=== PATIENT | female | born 1980 | race Caucasian/White ===

== ENCOUNTER 2016-12-31 09:15 | Emergency (ER) | payer OTHER ==
[2016-12-31 09:24] VITALS: BP 129/79
--- NOTE | 2016-12-31 09:54 | UC ---
FLU HPI - History of Current Complaint Chief Complaint: UCGeneralIllness Stated Complaint: FEVER,BODY ACHES Time Seen by Provider: 12/31/16 09:34 Hx Obtained From: Patient Hx Last Menstrual Period: murena ?: No Onset/Duration: Sudden Onset, Lasting Days - 2 Severity Currently: Moderate Severity Initially: Mild Pain Intensity: 3 Pain Scale Used: 0-10 Numeric Associated Signs & Symptoms: Positive: Fever, Myalgia, Cough - Allergy/Home Medications Allergies/Adverse Reactions: Allergies Allergy/AdvReac Type Severity Reaction Status Date / Time No Known Allergies Allergy Verified 12/31/16 09:25 Home Medications: Home Medications NK [No Home Medications Reported] 12/31/16 [History Confirmed 12/31/16] PMH/Surg Hx/FS Hx/Imm Hx Previously Healthy: Yes - Surgical History Surgical History: None - Family History Family History: no reported cardiovascular issues in family lineage - Social History Occupation: Employed Full-time Lives: With Family Alcohol Use: None Substance Use Type: None Smoking Status (MU): Never Smoked Tobacco - Immunization History Most Recent Influenza Vaccination: fall 2015 Review of Systems Constitutional: Fever, Chills, Fatigue Skin: Negative Eyes: Negative ENT: Negative Respiratory: Cough Cardiovascular: Negative Gastrointestinal: Negative Genitourinary: Negative Motor: Negative Neurovascular: Negative Musculoskeletal: Myalgia Neurological: Negative Psychological: Negative All Other Systems Reviewed And Are Negative: Yes Physical Exam Triage Information Reviewed: Yes Appearance: Well-Appearing, No Pain Distress, Well-Nourished Vital Signs: Initial Vital Signs Temp 97.4 F 12/31/16 09:21 Pulse 91 12/31/16 09:21 Resp 16 12/31/16 09:21 BP 129/79 12/31/16 09:21 Pulse Ox 98 12/31/16 09:21 Vital Signs Reviewed: Yes Eye Exam: Normal Eyes: Positive: Conjunctiva Clear ENT Exam: Normal ENT: Positive: Normal ENT inspection, Hearing grossly normal, Pharynx normal, TMs normal. Negative: Nasal congestion, Nasal drainage, Tonsillar swelling, Tonsillar exudate, Trismus, Muffled/hoarse voice Neck exam: Normal Neck: Positive: Supple, Nontender, No Lymphadenopathy Respiratory Exam: Normal Respiratory: Positive: Chest non-tender, Lungs clear, Normal breath sounds, No respiratory distress, No accessory muscle use Cardiovascular Exam: Normal Cardiovascular: Positive: RRR, No Murmur, Pulses Normal, Brisk Capillary Refill Musculoskeletal Exam: Normal Musculoskeletal: Positive: Strength Intact, ROM Intact, No Edema Neurological Exam: Normal Neurological: Positive: Alert Psychological Exam: Normal Skin Exam: Normal Diagnostics - Laboratory Diagnostic Studies Completed/Ordered: RST(-) Flu Course/Dx - Course Course Of Treatment: increase fluids, tylenol, ibuprofen follow with pcp re- check prn - Differential Dx/Diagnosis Differential Diagnosis/HQI/PQRI: Bronchitis, Influenza, Pneumonia, RSV, Upper Respiratory Infection Provider Diagnoses: URI Discharge - Discharge Plan Condition: Stable Disposition: HOME Patient Education Materials: Upper Respiratory Infection (ED), Viral Syndrome ( ED) Referrals: [facility] [place] [facility] [Outside] - If Needed
== END 2016-12-31 10:09 | disposition home or self-care (01) ==
LOC: MERGE 09:15 → UCEAST 09:15
DX: J06.9 Acute upper respiratory infection, unspecified (principal)
CPT/HCPCS: 87502; 99201; G0463

== ENCOUNTER 2019-01-12 18:00 | Inpatient (IN) | payer OTHER ==
[2019-01-12] MEDS ORDERED: Buffered Lidocaine 1% SYRIN* 1 ML/SYRINGE INTRADERM ONE (18:41)
[2019-01-12] MEDS ORDERED: Lactated Ringers 1000 ML Bag* 1,000 ML IV ONE (18:41)
--- NOTE | 2019-01-12 18:55 | HP ---
General Information - Reason for Visit labor check - General Information Maternal Age: 38 Grav: 3 Para: 2 SAB: 1 IEA: 0 Estimated Due Date: 01/08/19 Determined By: LMP Gestational Age in Weeks/Days: 40w 4d Maternal Blood Type and Rh: B Positive - Results this Serology/RPR Result: Non-Reactive Rubella Result: Immune HBsAg Result: Negative HIV Result: Negative GBS Culture Result: Negative Past Medical History Delivery History: Hx Uncomplicated Vaginal Delivery Pertinent Past Medical History: Non-Contributory Past Surgical History Comment: Left ACL repair (09/1999) Laparoscopy with L salpingotomy for ectopic (04/2015) Pertinent Family History: See Records - Antepartal Records Antepartal Records: Reviewed, Uncomplicated Review of Systems Constitutional: Comfortable - breathing through contractions CV Complaint: No Respiratory: Shortness of Breath: No Gastrointestinal: No Nausea/Vomiting, Normal Bowel Movement Genitourinary: No Leaking Fluid Musculoskeletal: Contractions Neurological: No Headache, No Visual Changes Movement: Normal Exam Allergies/Adverse Reactions: Allergies No Known Allergies Allergy (Verified 06/02/16 02:02) - Measurements Height: 5 ft 8 in Weight: 230 lb Weight in lbs: [phone] Body Mass Index (BMI): 34.9 Pre- Weight: 187 lb Weight Gained This : 43 lbs and 0 ozs - Exam Breast: - - soft, no masses Extremities: No Edema Heart: Normal Rhythm/Heart Sounds HEENT: No Significant Findings Lungs: Clear Bilaterally Reflexes: DTR 2+ Thyroid: No Thyromegaly - Abdominal Exam Abdomen Exam: Fundal Height Consistent with Dates - Ultrasound/Biophysical Profile Ultrasound Status: Not Done Targeted Exam Findings Estimated Weight: 8 lbs Cervical Exam: 5cm Effacement: 90% Station: -1 Presenting Part: Vertex Membrane Status: Intact Bleeding/Discharge: None EFM Findings - External Monitor Findings Baseline Heart Rate: 135 External Monitor Findings: Accelerations Present, No Pattern of Variable or Late Decelerations, Variability Moderate, Baseline Stable External Monitor Findings Comment: category 1 Contractions: Regular, Moderate, 45-90 Seconds Contraction Frequency: every 4 minutes Assessment/Plan - Assessment 40w 4d, in labor - Obstetrical Risk Factors Risk Factors Comment: age 38, normal NIPT/MSAFP - Plan Plan: Admit - Anticipate Vaginal Delivery - Date/Time of Admission Date of Admission: 01/12/19 Time of Admission: 18:30
[2019-01-12] MEDS ORDERED: Lactated Ringers 1000 ML Bag* 1,000 ML IV SCH (19:00)
--- NOTE | 2019-01-12 21:37 | PN ---
Progress Note - Progress Note Date of Service: 01/12/19 Note: In tub. Coping well with contractions. Contractions every 3-4 minutes Cervix: 8-9 cm, 100%, vtx -1
[2019-01-12] MEDS ORDERED: Lidocaine 1% INJ* 10 MG/ML 30 ML SDV ONE (22:25)
[2019-01-12] MEDS ORDERED: Dibucaine 1% 28.35 GM TUBE PR PRN (22:50)
[2019-01-12] MEDS ORDERED: Witch Hazel PAD* JAR TOPICAL PRN (22:50)
[2019-01-12] MEDS ORDERED: OXYTOCIN* 10 UNITS/ML 1 ML VIAL IM ONE (22:50)
[2019-01-12] MEDS ORDERED: Glycerin ADULT SUPP PR PRN (22:50)
[2019-01-12] MEDS ORDERED: OXYTOCIN* 10 UNITS/ML 1 ML VIAL ONE (22:56)
--- NOTE | 2019-01-12 22:57 | PROCNOTE ---
[facility] OB: Delivery Note - Delivery A Date of : 01/12/19 Time of : 22:14 [place] Sex: Male Score 1 Minute: 8 Score 5 Minutes: 9 Gestational Age in Weeks and Days at Delivery: 40 Weeks and 4 Days Delivery Method: Spontaneous Vaginal Labor: Spontaneous Did Patient attempt ?: N/A, No Previous Amniotic Fluid: Clear Estimated Blood Loss: 200 Anesthesia/Analgesia: None Delivered By: Mile Diaz - Nursery Level of Nursery: Regular/Bedside - Perineum Perineal Injury: Midline Episiotomy Perineal Injury Comment: repaired with 3-0 and 4-0 ccg under 1% lidocaine local Perineal Repair: By Delivering Practioner - Events Delivery Events of Note: Pitocin Only After Delivery - Additional Delivery Notes Additional Delivery Notes: SVB LMC, OA over midline episiotomy. 20 min 2nd stage. pink with stimulation. Placenta Holly. FF with massage and pitocin 10 units IM. EBL 200cc. Mother and baby in good condition,
[2019-01-12] MEDS: Ibuprofen TAB* 600 MG PO PRN (23:21)
[2019-01-13] MEDS: Ibuprofen TAB* 600 MG PO PRN ×4 (05:17→23:44)
[2019-01-13] MEDS: Acetaminophen TAB* 325 MG PO PRN ×5 (05:29→21:25)
[2019-01-13 07:29] LABS: ABS Basophils 0 10^3/ul (0-0.2); ABS Eosinophils 0 10^3/ul (0-0.6); ABS Lymphocytes 1.7 10^3/ul (1.0-4.8); ABS Monocytes 0.8 10^3/ul (0-0.8); ABS Neutrophils 11.5 10^3/ul (1.5-7.7); ABS Nucleated RBC 0 10^3/ul; Eosinophil % 0 %; Hematocrit 31 % (35-47); Hemoglobin 10.3 g/dl (12.0-16.0); Lymphocyte % 11.8 %; Mean Corpuscular HGB Conc 33 g/dl (31-36); Mean Corpuscular Hemoglobin 27 pg (27-31); Mean Corpuscular Volume 82 fL (80-97); Mean Platelet Volume 9.4 fL (7.4-10.4); Nucleated Red Blood Cells % 0; Platelet Count 239 10^3/ul (150-450); Red Blood Count 3.77 10^6/ul (4.00-5.40); Red Cell Distribution Width 14 % (10.5-15)
[2019-01-13] MEDS ORDERED: Ferrous Gluconate TAB* 324 MG TAB PO SCH (09:00)
[2019-01-13] MEDS: Docusate CAP* 100 MG PO SCH ×3 (09:39→21:25)
[2019-01-14] MEDS: Acetaminophen TAB* 325 MG PO PRN ×2 (02:05→08:27)
[2019-01-14] MEDS: Ibuprofen TAB* 600 MG PO PRN (06:11)
[2019-01-14 08:51] VITALS: BP 124/69
== END 2019-01-14 11:58 | disposition home or self-care (01) | DRG 807 ==
LOC: MCHOBOUT 18:00 → MCHOB 18:23
PROVIDERS: ADMIT Midwife; ATTEND Midwife
PROC: 4A1HXCZ Monitoring of Products of Conception, Cardiac Rate, External Approach (ICD-10-PCS; principal; 2019-01-12)
PROC: 10E0XZZ Delivery of Products of Conception, External Approach (ICD-10-PCS; 2019-01-12)
PROC: 0W8NXZZ Division of Female Perineum, External Approach (ICD-10-PCS; 2019-01-12)
DX: O69.81X0 Labor and delivery complicated by cord around neck, without compression, not applicable or unspecified (principal); Z37.0 Single live birth; O48.0 Post-term pregnancy; Z3A.40 40 weeks gestation of pregnancy
CPT/HCPCS: 36415; 85025; A9270-GY; J2590